=== PATIENT | female | born 1965 | race Caucasian/White ===

== ENCOUNTER 2021-12-23 16:38 | Outpatient (CLI) | payer OTHER, SELFPAY ==
[2021-12-23 15:20] LABS: Chloride* 103 mmol/L (96-114); Potassium* 4.4 mmol/L (3.6-5.1); Sodium* 140 mmol/L (135-149)
[2021-12-23 15:23] LABS: Blood Urea Nitrogen* 15 mg/dL (7-30); Carbon Dioxide* 26 mmol/L (20-32); Cholesterol* 156 mg/dL (90-199); Creatinine* 0.6 mg/dL (0.5-1.5); Estimated Glomerular Filt Rate 105 ml/min; Glucose* 80 mg/dL (60-115); Triglycerides* 43 mg/dL (40-149)
[2021-12-23 15:24] LABS: HDL Cholesterol* 61 mg/dL (>=50); LDL Cholesterol Calculated 86 mg/dL (<100)
== END 2021-12-23 16:39 | disposition home or self-care (01) ==
PROVIDERS: PCP Physician Assistant Medical; Visit Provider Physician Assistant Medical
DX: Z00.00 Encounter for general adult medical examination without abnormal findings (principal); R06.09 Other forms of dyspnea
CPT/HCPCS: 80048; 80061

== ENCOUNTER 2021-12-24 08:03 | Outpatient (CLI) | payer OTHER, SELFPAY ==
[2021-12-24 14:40] LABS: Vitamin D 25 Hydroxy* 54 ng/mL (30-80)
== END 2021-12-24 08:04 | disposition home or self-care (01) ==
LOC: FRMREF 08:04
PROVIDERS: PCP Physician Assistant Medical; Visit Provider Physician Assistant Medical
DX: Z00.00 Encounter for general adult medical examination without abnormal findings (principal); R53.83 Other fatigue; D64.9 Anemia, unspecified; R06.02 Shortness of breath
CPT/HCPCS: 82306

== ENCOUNTER 2022-03-25 16:31 | Outpatient (CLI) | payer OTHER, SELFPAY ==
--- NOTE | 2022-03-25 16:45 | CRLHL7_ITS ---
For Patients: As a result of the Cures Act, medical imaging exams and procedure reports are released immediately into your electronic medical record. You may view this report before your referring provider. If you have questions, please contact your health care provider. BILATERAL SCREENING MAMMOGRAM WITH COMPUTER-AIDED DETECTION AND TOMOSYNTHESIS TECHNIQUE: CC and MLO views were obtained. These mammographic images have been obtained using full-field digital technique. These mammographic images were interpreted with the benefit of computer-aided detection. Breast Tomosynthesis was used in this interpretation. COMPARISON FILM: 05/14/20, 01/27/20, 10/29/18. FINDINGS: The breasts are heterogeneously dense, which may obscure small masses. IMPRESSION: There is no radiographic evidence for malignancy. ASSESSMENT: BI-RADS Category 1: Negative RECOMMENDATION: Routine screening mammogram in 1 year. A lay language report of this examination will be provided to the patient. Omar Smiley M.D. Diagnostic/Nuclear Medicine Radiologist [email or web address] ALINA:[email or web address] Transcribed: 10:58 a.m. PT/Dictated by: Omar Smiley MD @ 03/26/2022 8:41:00 AM (Electronically Signed)
== END 2022-03-25 16:32 | disposition home or self-care (01) ==
LOC: MAMMO 16:33
PROVIDERS: PCP Physician Assistant Medical; Visit Provider Physician Assistant Medical
DX: Z12.31 Encounter for screening mammogram for malignant neoplasm of breast (principal); R92.2 Inconclusive mammogram
CPT/HCPCS: 77063; 77067

== ENCOUNTER 2023-07-16 09:47 | Outpatient (CLI) | payer OTHER, SELFPAY | END 2023-07-16 09:48 | disposition home or self-care (01) | LOC: FRMREF 09:50 | PROVIDERS: PCP Physician Assistant Medical; Visit Provider Family Medicine | DX: M25.50 Pain in unspecified joint (principal) | CPT/HCPCS: 86140 ==

== ENCOUNTER 2024-03-29 17:16 | Outpatient (CLI) | payer OTHER, SELFPAY ==
--- NOTE | 2024-03-29 17:20 | CRLHL7_ITS ---
For Patients: As a result of the Century Cures Act, medical imaging exams and procedure reports are released immediately into your electronic medical record. You may view this report before your referring provider. If you have questions, please contact your health care provider. BILATERAL SCREENING MAMMOGRAM WITH COMPUTER-AIDED DETECTION AND TOMOSYNTHESIS TECHNIQUE: CC and MLO views were obtained. These mammographic images have been obtained using full-field digital technique. These mammographic images were interpreted with the benefit of computer-aided detection. Breast Tomosynthesis was used in this interpretation. COMPARISON FILM: 03/25/22, 03/14/21, 10/29/18. FINDINGS: The breasts are heterogeneously dense, which may obscure small masses. IMPRESSION: There is no radiographic evidence for malignancy. ASSESSMENT: BI-RADS Category 2: Benign RECOMMENDATION: Routine screening mammogram in 1 year. A lay language report of this examination will be provided to the patient. Mello Lin M.D. Diagnostic Radiologist [email or web address] SP/Dictated by: Mello Lin MD @ 03/30/2024 12:27:00 PM (Electronically Signed)
== END 2024-03-29 17:17 | disposition home or self-care (01) ==
PROVIDERS: PCP Physician Assistant Medical; Visit Provider Physician Assistant Medical
DX: Z12.31 Encounter for screening mammogram for malignant neoplasm of breast (principal); R92.333 Mammographic heterogeneous density, bilateral breasts
CPT/HCPCS: 77063; 77067

== ENCOUNTER 2024-04-14 13:53 | Emergency (ER) | payer OTHER, SELFPAY ==
[2024-04-14 13:56] VITALS: BP 114/78; PULSE 105; RESP 12; TEMP 36.7; O2SAT 99; BMI 27.5
--- NOTE | 2024-04-14 14:45 | ED.GENADULT ---
HPI - General Adult General Chief complaint: Fall/Minor Trauma Stated complaint: fell in shower, hit head, lost consciousness Time Seen by Provider: 04/14/24 14:13 History of Present Illness HPI narrative: This 58-year-old female comes in for evaluation of a syncopal event that occurred prior to arrival. She states that she has been having nausea, vomiting, and diarrhea for the past day or so. She went into a shower and was feeling lightheaded and fell into the shower because she loss consciousness. She bumped her head in so doing and has an abrasion on the occipital area. She is reporting a mild headache in this area. She has not had any subsequent vomiting, neurologic deficit, or altered mental status. She called into the clinic asking if she could take some ibuprofen and was instructed to come here. Related Data Previous Rx's ?Medication ?Instructions ?Recorded ondansetron HCl 4 mg tablet 4 mg PO Q6H #10 tabs 04/14/24 Allergies Allergy/AdvReac Type Severity Reaction Status Date / Time erythromycin base Allergy Unknown Verified 02/09/24 08:24 seasonal pollen Allergy Mild post nasal Uncoded 02/09/24 08:24 drainage Review of Systems Status of ROS: Reports: 10 or more systems reviewed and unremarkable except as noted in History and below Narrative: Constitutional: No fevers, no weight gain or loss. Eyes: No discharge. No vision changes. HENT: No congestion, no sore throat, no ear pain. Cardiovascular: No chest pain, no palpitations. Respiratory: No shortness of breath, no wheezes, no cough. Gastrointestinal: She reports some brief crampy abdominal pains related to diarrhea episodes. Genitourinary: No dysuria, no hematuria. Musculoskeletal: Normal range of motion. Skin: No rashes, no pruritis. Neurological: No dizziness, weakness, sensory change, speech change. Endo/Heme/Allergies: No bruising or bleeding. No polydipsia. Pysch: no suicidality, no anxiety, no insomnia. All other systems reviewed and are negative. [facility] Surgical History History of ovarian cystectomy ?Z98.890 - Other specified postprocedural states (ICD-10) ?Z87.42 - Personal history of other diseases of the female genital tract (ICD-10) History of esophagogastroduodenoscopy (EGD) ?Z98.890 - Other specified postprocedural states (ICD-10) History of endometrial ablation ?Z98.890 - Other specified postprocedural states (ICD-10) History of colonoscopy ?Z98.890 - Other specified postprocedural states (ICD-10) History of cholecystectomy ?Z90.49 - Acquired absence of other specified parts of digestive tract (ICD-10) History of bilateral oophorectomy ?Z90.722 - Acquired absence of ovaries, bilateral (ICD-10) Family History Maternal Grandfather Diabetes Paternal Grandfather Heart disease Other Breast cancer Mental disorder Social History Smoking Status: Never smoker Exam Narrative: Exam Narrative: Constitutional: Well-developed, well-nourished, no acute distress. HEENT: Small superficial abrasion in the occipital region with no active bleeding. No fluctuance scalp hematoma. Neck: Normal range of motion. Nontender. Supple. Heart: Regular. No murmurs. Normal rate. Intact distal pulses. Lungs: Clear to auscultation. No chest discomfort. No wheezes, rhonchi, or rales. Abdomen: Normal bowel sounds. Nontender. No rebound tenderness. Genitalia: Deferred. Back: No midline tenderness. Normal range of motion. Extremities: Normal range of motion. No injury. Skin: Intact. No rash. Warm. No erythema or pallor. Neurologic: No altered sensation. No weakness. Alert and oriented. No facial asymmetry. Tongue is midline. She is able to ambulate normally. Psychiatric: No suicidality. No anxiety or depression. No insomnia. Nursing notes and vitals signs are reviewed. Const: Vital Signs, click to edit/add: Vital Signs - 24 hr 04/14/24 13:56 Temperature 98.1 F Pulse Rate [Pulse Oximeter] 105 H Respiratory Rate 12 Blood Pressure [Ri ght Upper Arm] 114/78 Pulse Oximetry 99 Oxygen Delivery Me thod Room Air Course Vital Signs Vital signs: Initial Vital Signs Temperature 98.1 F 04/14/24 13:56 Temperature Source Temporal Artery Scan 04/14/24 13:56 Pulse Rate 105 H 12/19/24 13:56 Respiratory Rate 12 04/14/24 13:56 Blood Pressure 114/78 04/14/24 13:56 Blood Pressure Mean 90 04/14/24 13:56 Blood Pressure Position Sitting 04/14/24 13:56 Pulse Oximetry 99 04/14/24 13:56 Oxygen Delivery Method Room Air 04/14/24 13:56 Vital Signs Temperature 98.1 F 04/14/24 13:56 Pulse Rate 105 H 04/14/24 13:56 Respiratory Rate 12 04/14/24 13:56 Blood Pressure 114/78 04/14/24 13:56 Pulse Oximetry 99 04/14/24 13:56 Oxygen Delivery Method Room Air 04/14/24 13:56 Temperature 98.1 F 04/14/24 13:56 Pulse Rate 105 H 04/14/24 13:56 Respiratory Rate 12 04/14/24 13:56 Blood Pressure 114/78 04/14/24 13:56 Pulse Oximetry 99 04/14/24 13:56 Oxygen Delivery Method Room Air 04/14/24 13:56 Medical Decision Making MDM Narrative Medical decision making narrative: This patient had a syncopal event that was preceded by lightheadedness secondary to some nausea, vomiting, and diarrhea. She arrives here with normal vital signs and does not have any serious symptoms. She reports some mild tenderness in her occipital region but does not otherwise have a headache. I did discuss lab and imaging options with the patient and in a process of shared decision making these were declined. Her wound on her occiput and does not need any repair. She did receive an oral dose of Zofran 4 mg. A prescription for the same is provided. Her symptoms are likely related to a gastroenteritis. I encouraged frequent sips of fluids and increasing her diet as tolerated. ECG Data Attestation: I personally reviewed and interpreted this ECG as follows: Interpretation: Normal sinus rhythm. Rate is 87 beats per minute. There are no ST or T-wave abnormalities. Discharge Plan Discharge Clinical Impression: Gastroenteritis, Syncope Patient Disposition: Home, Self-Care Condition: Improved Additional Instructions: Take frequent sips of fluids and increase diet as tolerated. Use Zofran as needed and directed for nausea symptoms. Follow up with MD return if worsening. Prescriptions: New ondansetron HCl 4 mg tablet 4 mg PO Q6H Qty: 10 0RF Follow Up/Referrals: Derik Gale PA-C [Primary Care Provider] - Stand Alone Forms: [employer] Info Instructions
[2024-04-14] MEDS: ONDANSETRON ODT 4 MG TAB PO (15:01)
== END 2024-04-14 15:15 | disposition home or self-care (01) ==
LOC: ED 15:05
PROVIDERS: Emergency Provider Emergency Medicine Emergency Medical Services; PCP Physician Assistant Medical
DX: R55 Syncope and collapse (principal); K52.9 Noninfective gastroenteritis and colitis, unspecified; W18.2XXA Fall in (into) shower or empty bathtub, initial encounter
CPT/HCPCS: 93005; 99284; A9270

== ENCOUNTER 2024-08-12 07:45 | Outpatient (CLI) | payer OTHER, SELFPAY | END 2024-08-12 07:46 | disposition home or self-care (01) | LOC: NFLDREF 08-16 16:36 | PROVIDERS: PCP Physician Assistant Medical; Referring Provider Physician Assistant Medical; Visit Provider Physician Assistant Medical | DX: Z13.228 Encounter for screening for other metabolic disorders (principal); Z13.6 Encounter for screening for cardiovascular disorders; Z13.29 Encounter for screening for other suspected endocrine disorder | CPT/HCPCS: 80053; 80061; 84443 ==

== ENCOUNTER 2024-08-15 09:34 | Outpatient (CLI) | payer OTHER, SELFPAY ==
[2024-08-16 21:04] LABS: HPV Source Cervical/Vag; HPV, High Risk by TMA Not Detected
== END 2024-08-15 09:35 | disposition home or self-care (01) ==
PROVIDERS: PCP Physician Assistant Medical; Visit Provider Physician Assistant Medical
DX: Z11.51 Encounter for screening for human papillomavirus (HPV) (principal); Z12.4 Encounter for screening for malignant neoplasm of cervix
CPT/HCPCS: 87624; 87625; 88141; 88142